=== PATIENT | female | born 1985 | race Caucasian/White ===

== ENCOUNTER 2021-03-13 04:48 | Inpatient (IN) ==
[2021-03-13] MEDS ORDERED: Azithromycin 500 MG in 0.9 % Sodium Chloride 250 ML IVPB PRN (04:57)
[2021-03-13] MEDS ORDERED: Famotidine 20 MG/2 ML VIAL IVP PRN (04:57)
[2021-03-13] MEDS ORDERED: Ringers Solution, Lactated 1,000 ML IVC ONE (04:57)
[2021-03-13] MEDS ORDERED: Ondansetron 4 MG/2 ML VIAL IVP PRN ×2 (04:57→10:48)
[2021-03-13] MEDS ORDERED: Naloxone 0.4 MG/ML INJ IVP PRN ×2 (04:57→10:48)
[2021-03-13] MEDS ORDERED: Metoclopramide 10 MG/2 ML VIAL IVP PRN ×2 (04:57→10:48)
[2021-03-13] MEDS ORDERED: Ringers Solution, Lactated 1,000 ML IVC SCH ×2 (05:00→10:48)
[2021-03-13 05:58] LABS: Basophils % 0.3 %; Eosinophils # 0.2 K/mcL (0.0-0.6); Eosinophils % 1.1 %; Hematocrit 34.5 % (35.3-44.9); Hemoglobin 11.2 g/dL (11.5-15.4); Immature Granulocytes % 0.8 % (0-4); Lymphocytes # 2.4 K/mcL (0.6-4.6); Lymphocytes % 17.8 %; Mean Corpuscular HGB Conc 32.5 g/dL (31.6-35.5); Mean Corpuscular Hemoglobin 25.7 pg (28.0-33.3); Mean Corpuscular Volume 79.3 fL (83.0-100.0); Mean Platelet Volume 11.5 fL (9.4-12.4); Monocytes # 0.6 K/mcL (0.0-1.3); Monocytes % 4.5 %; Neutrophils # 10.3 K/mcL (1.6-8.9); Platelet Count 296 K/mcL (140-400); Red Blood Count 4.35 M/mcL (3.82-4.97); Red Cell Distribution Width 17.6 % (11.5-14.5); Segmented Neutrophils % 75.5 %; White Blood Count 13.6 K/mcL (4.3-11.1)
[2021-03-13 06:26] LABS: Influenza A PCR Negative (Negative); Influenza B PCR Negative (Negative); Resp. Syncytial Virus PCR Negative (Negative)
[2021-03-13 06:42] LABS: SARS-CoV-2 by PCR (In House) Negative (Negative)
[2021-03-13] MEDS ORDERED: *HR* FentaNYL (PF) 100 MCG/2 ML VIAL ONE ×2 (07:55→09:32)
[2021-03-13] MEDS ORDERED: *HR* Morphine Sulfate/PF 10 MG/10 ML AMPUL ONE (07:55)
[2021-03-13] MEDS ORDERED: EPHEDrine 50 MG/ML VIAL ONE (07:56)
[2021-03-13] MEDS ORDERED: CeFAZolin Syr 3,000MG/30 ML 3,000 MG/30 ML SYRINGE IVPB ONE (08:00)
[2021-03-13] MEDS ORDERED: Oxytocin 20 units/ LR 1000 mL 20 UNIT/1,000 ML BAG IVC ONE (08:38)
[2021-03-13] MEDS ORDERED: Ondansetron 4 MG/2 ML VIAL ONE (09:10)
[2021-03-13] MEDS ORDERED: Acetaminophen IV 1,000 MG/100 ML BAG IVPB ONE (09:10)
[2021-03-13] MEDS ORDERED: Ketamine *HR* 500 MG/10 ML MDV ONE (09:11)
[2021-03-13] MEDS ORDERED: Ketorolac 30 MG/ML VIAL ONE (09:34)
[2021-03-13] MEDS ORDERED: *HR* Labetalol 20 MG/4 ML SYRINGE IVP ONE (09:43)
[2021-03-13 09:58] LABS: Alanine Aminotransferase 20 Units/L (7-52); Aspartate Amino Transferase 16 Units/L (13-39); BUN/Creatinine Ratio 21 (6-26); Blood Urea Nitrogen 11 mg/dL (6-20); Lactate Dehydrogenase 128 Units/L (140-271); Uric Acid 6.2 mg/dL (2.3-7.6); eGFR For African Americans > 60 (> 60); eGFR For Non-African Americans > 60 (> 60)
[2021-03-13 10:14] LABS: Amphetamine Screen,Urine Negative ng/mL (Cutoff=1000); Barbiturate Screen,Urine Negative ng/mL (Cutoff=200); Benzodiazepines Screen,Urine Negative ng/mL (Cutoff=200); Cannabinoid Screen,Urine Negative ng/mL (Cutoff = 50); Cocaine Screen,Urine Negative ng/mL (Cutoff= 300); Creatinine,Urine 61 mg/dL; Opiate Screen,Urine Negative ng/mL (Cutoff=300); Phencyclidine Screen,Urine Negative ng/mL (Cutoff=25); Protein/Creatinine Ratio,Urine 0.16 mg/mg (0.00-0.20)
[2021-03-13] MEDS ORDERED: Oxytocin 20 units/ LR 1000 mL 20 UNIT/1,000 ML BAG IVC SCH (10:48)
[2021-03-13] MEDS ORDERED: Simethicone 80 MG TAB.CHEW PO PRN (10:48)
[2021-03-13] MEDS ORDERED: Rho Immune Globulin 1,500 UNIT SYRINGE IM ONE (10:48)
[2021-03-13] MEDS ORDERED: *HR* OxyCODONE Immed Rel 5 MG TABLET PO STA (10:56)
[2021-03-13] MEDS: Ibuprofen 600 MG TABLET PO SCH ×2 (15:47→21:45)
[2021-03-13] MEDS ORDERED: Acetaminophen 325 MG TABLET PO SCH (16:00)
[2021-03-13] MEDS: *HR* OxyCODONE Immed Rel 5 MG TABLET PO PRN ×2 (17:13→21:51)
[2021-03-13] MEDS: Acetaminophen 325 MG TABLET PO SCH (21:46)
[2021-03-13] MEDS: *HR* Enoxaparin 80 MG/0.8 ML SYRINGE SQ SCH (21:47)
[2021-03-14] MEDS: *HR* OxyCODONE Immed Rel 5 MG TABLET PO PRN ×3 (02:03→10:06)
[2021-03-14] MEDS: Acetaminophen 325 MG TABLET PO SCH ×2 (04:02→10:05)
[2021-03-14] MEDS: Ibuprofen 600 MG TABLET PO SCH ×2 (04:02→10:04)
[2021-03-14 04:08] VITALS: O2SAT 98
[2021-03-14 04:42] LABS: Basophils % 0.3 %; Eosinophils # 0.1 K/mcL (0.0-0.6); Eosinophils % 0.8 %; Hematocrit 27.9 % (35.3-44.9); Immature Granulocytes % 0.7 % (0-4); Lymphocytes # 2.5 K/mcL (0.6-4.6); Lymphocytes % 18.1 %; Mean Corpuscular HGB Conc 32.3 g/dL (31.6-35.5); Mean Corpuscular Hemoglobin 25.8 pg (28.0-33.3); Mean Corpuscular Volume 79.9 fL (83.0-100.0); Mean Platelet Volume 11.8 fL (9.4-12.4); Monocytes # 0.8 K/mcL (0.0-1.3); Neutrophils # 10.3 K/mcL (1.6-8.9); Platelet Count 259 K/mcL (140-400); Red Blood Count 3.49 M/mcL (3.82-4.97); Red Cell Distribution Width 17.6 % (11.5-14.5); Segmented Neutrophils % 74.1 %; White Blood Count 13.9 K/mcL (4.3-11.1)
[2021-03-14 07:39] VITALS: BP 144/82; PULSE 79; TEMP 97.7
[2021-03-14] MEDS: *HR* Enoxaparin 80 MG/0.8 ML SYRINGE SQ SCH (08:00)
[2021-03-14] MEDS ORDERED: Prenatal Vit/FA 1 EACH TABLET PO SCH (09:00)
== END 2021-03-14 11:07 | disposition home or self-care (01) | DRG 539 ==
LOC: 1NENULAB 04:48 → 1NENUOBS 12:28
PROVIDERS: ADMIT Obstetrics & Gynecology; ATTEND Obstetrics & Gynecology